=== PATIENT | male | born 1995 | race Caucasian/White ===

== ENCOUNTER 2017-03-03 11:24 | Emergency (ER) | payer SELFPAY ==
[~2017-03-03] VITALS: Ht 170.2 cm; Wt 80.0 kg
[2017-03-03 11:36] VITALS: Ht 170.2 cm; Wt 80.0 kg
[2017-03-03 12:11] LABS: ADD SCAN DIFF NO
[2017-03-03 12:14] LABS: BASOPHIL # 0.1 10^3/ul (0.0-0.1); BASOPHILS % 0.5 % (0.0-2.0); EOSINOPHILS % 0.2 % (0.0-7.0); HEMATOCRIT 42.6 % (42.0-52.0); HEMOGLOBIN 14.6 g/dl (14.0-18.0); LYMPHOCYTES # 2.2 10^3/ul (0.8-2.9); LYMPHOCYTES % 20.5 % (18.0-55.0); MEAN CORPUSCULAR HEMOGLOBIN 29.7 pg (29.0-33.0); MEAN CORPUSCULAR HGB CONC 34.3 g/dl (32.0-37.0); MEAN CORPUSCULAR VOLUME 86.6 fl (72.0-104.0); MEAN PLATELET VOLUME 10.4 fl (7.4-10.4); MONOCYTE # 0.7 10^3/ul (0.3-0.9); MONOCYTES % 6.9 % (0.0-13.0); NEUTROPHIL # 7.5 10^3/ul (1.6-7.5); NEUTROPHILS % 71.6 % (30.0-74.0); PLATELET COUNT 181 10^3/UL (140-415); RED BLOOD COUNT 4.92 10^6/ul (4.70-6.10); RED CELL DISTRIBUTION WIDTH 12.3 % (11.5-14.5); WHITE BLOOD COUNT 10.5 10^3/ul (4.8-10.8)
[2017-03-03 12:29] LABS: ALBUMIN 4.4 g/dl (3.3-4.9); CHLORIDE 102 mmol/L (97-110)
[2017-03-03 12:30] LABS: POTASSIUM 3.2 mmol/L (3.5-5.1); SODIUM 140 mmol/L (135-144)
[2017-03-03 12:32] LABS: ALBUMIN/GLOBULIN RATIO 1.33; ANION GAP 15 (8-16); ASPARTATE AMINO TRANSFERASE 28 IU/L (15-46); BILIRUBIN,INDIRECT 0.8 mg/dl (0-1.1); BILIRUBIN,TOTAL 0.8 mg/dl (0.2-1.3); CARBON DIOXIDE 26 mmol/L (21-31); CREATININE 0.83 mg/dl (0.61-1.24); TOTAL PROTEIN 7.7 g/dl (6.1-8.1)
[2017-03-03 12:33] LABS: ALANINE AMINOTRANSFERASE 32 IU/L (13-69); ALKALINE PHOSPHATASE 35 IU/L (42-121); BLOOD UREA NITROGEN 12 mg/dl (7-20); CALCIUM 9.4 mg/dl (8.4-10.2); GLUCOSE 103 mg/dl (70-220)
[2017-03-03 12:42] LABS: ACETAMINOPHEN < 10.0 ug/ml (10.0-30.0)
--- NOTE | 2017-03-03 12:42 | RADRPT ---
PROCEDURE: CT brain without contrast CLINICAL INDICATION: Possible drug use, medical clearance, altered mental status TECHNIQUE: CT of the brain without contrast was performed on a multidetector CT scanner, with multi planar reformats. One or more of the following dose reduction techniques were used: Automated expos ure control, adjustment in mA and / or kV according to patient size, use of iterative reconstructive technique. CTDIvol = 43 mGy; DLP = 720 mGy-cm. COMPARISON: None available FINDINGS: No acute intracranial hemorrhage is identified. No extra-axial fluid collection is seen. There is no mass effect. No midline shift is identified. Ventricles and sulci are within normal limits for size and configuration. The density of the brain is unremarkable. Park-white differentiation is preserved. Osseous structures are unremarkable. Mastoid air cells and imaged paranasal sinuses grossly clear. IMPRESSION: Unremarkable noncontrast CT of the brain. RPTAT: VV .Ben Phan MD, MD Date Time Electronically viewed and signed by .Ben Phan MD, MD on 03/03/2017 12:42 .O/
[2017-03-03 12:43] LABS: ETHANOL < 10.0 mg/dl; SALICYLATE < 1.0 mg/dl (5.0-30.0)
[2017-03-03 13:23] LABS: ADD UMIC YES; URINE BILIRUBIN (Dip) NEGATIVE (NEGATIVE); URINE BLOOD (Dip) NEGATIVE (NEGATIVE); URINE COLOR LT. YELLOW (YELLOW); URINE GLUCOSE (Dip) NEGATIVE (NEGATIVE); URINE KETONES (Dip) NEGATIVE (NEGATIVE); URINE LEUKOCYTE ESTERASE (Dip) TRACE (NEGATIVE); URINE NITRITE (Dip) NEGATIVE (NEGATIVE); URINE TOTAL PROTEIN (Dip) NEGATIVE (NEGATIVE); URINE UROBILINOGEN (Dip) 0.2 E.U./dL (0.1-1.0)
[2017-03-03] MEDS: POTASSIUM CHLORIDE (SR) 20 MEQ TAB PO STA ×2 (13:25→13:26)
[2017-03-03] MEDS: LORAZEPAM 2 MG INJ IM ONE ×2 (13:25→13:29)
[2017-03-03 13:30] VITALS: BP 136/82; PULSE 94; RESP 20; TEMP 98
--- NOTE | 2017-03-03 13:34 | ERD ---
ER Documentation Chief Complaint Date/Time DATE: 03/03/17 TIME: 13:31 Chief Complaint BIB RA FOR DRUG USE METH. HPI Patient is a 21-year-old male with illicit drug use who presents saying that he smoked methamphetamines. He said that he does this every day but today he did it and feels that it might have been "laced" with some other drug". He is more altered than usual per the girlfriend. He smoked the methamphetamines this morning between 6 and 8 AM. Upon review of old medical records the patient one previous visit to the ER in 2006. He does not currently have a primary doctor. ROS All systems reviewed and are negative except as per history of present illness. Allergies Allergies: Coded Allergies: No Known Allergy (Unverified , 03/03/17) PMhx/Soc Medical and Surgical Hx: pt denies Medical Hx, pt denies Surgical Hx Hx Alcohol Use: No Hx Substance Use: Yes (Meth today) Hx Tobacco Use: Yes Smoking Status: Current every day smoker FmHx Family History: No diabetes Physical Exam Vitals Vital Signs Date Time Temp Pulse Resp B/P Pulse Ox O2 Delivery O2 Flow Rate FiO2 03/03/17 11:39 98.1 112 19 143/89 99 03/03/17 11:36 98.1 112 19 143/89 99 Physical Exam Const: No acute distress Head: Atraumatic Eyes: Normal Conjunctiva ENT: Normal External Ears, Nose and Mouth. Neck: Full range of motion..~ No meningismus. Resp: Clear to auscultation bilaterally Cardio: Regular rate and rhythm, no murmurs Abd: Soft, non tender, non distended. Normal bowel sounds Skin: No petechiae or rashes Back: No midline or flank tenderness Ext: No cyanosis, or edema Neur: Awake but confused Result Diagram: 03/03/17 1151 03/03/17 1151 Results 24 hrs Laboratory Tests Test 03/03/17 11:51 White Blood Count 10.510^3/ul Red Blood Count 4.9210^6/ul Hemoglobin 14.6g/dl Hematocrit 42.6% Mean Corpuscular Volume 86.6fl Mean Corpuscular Hemoglobin 29.7pg Mean Corpuscular Hemoglobin Concent 34.3g/dl Red Cell Distribution Width 12.3% Platelet Count 94530^3/UL Mean Platelet Volume 10.4fl Neutrophils % 71.6% Lymphocytes % 20.5% Monocytes % 6.9% Eosinophils % 0.2% Basophils % 0.5% Nucleated Red Blood Cells % 0.0/100WBC Neutrophils # 7.510^3/ul Lymphocytes # 2.210^3/ul Monocytes # 0.710^3/ul Eosinophils # 0.010^3/ul Basophils # 0.110^3/ul Nucleated Red Blood Cells # 0.010^3/ul Sodium Level 140mmol/L Potassium Level 3.2mmol/L Chloride Level 102mmol/L Carbon Dioxide Level 26mmol/L Anion Gap 15 Blood Urea Nitrogen 12mg/dl Creatinine 0.83mg/dl Glucose Level 103mg/dl Calcium Level 9.4mg/dl Total Bilirubin 0.8mg/dl Direct Bilirubin 0.00mg/dl Indirect Bilirubin 0.8mg/dl Aspartate Amino Transf (AST/SGOT) 28IU/L Alanine Aminotransferase (ALT/SGPT) 32IU/L Alkaline Phosphatase 35IU/L Total Protein 7.7g/dl Albumin 4.4g/dl Globulin 3.30g/dl Albumin/Globulin Ratio 1.33 Salicylates Level < 1.0mg/dl Acetaminophen Level < 10.0ug/ml Ethyl Alcohol Level < 10.0mg/dl Current Medications Medications (Trade) Dose Ordered Sig/Ayesha Route PRN Reason Start Time Stop Time Status Last Admin Dose Admin Potassium Chloride (Klor-Con 20) 40 meq ONCE STAT PO 03/03/17 12:58 03/03/17 13:19 DC Lorazepam (Ativan) 1 mg ONCE ONCE IM 03/03/17 13:30 03/03/17 13:31 Procedures/MDM CT brain negative per radiology. EKG read by me: Rate/Rhythm: Regular rate and rhythm at a normal rate Intervals: Normal Impression: No evidence of ischemia or arrhythmia Smoking Cessation Therapy: Pt. was lectured for greater than 3 minutes on the health risks of continued smoking and the benefits of cessation. Patient is a 21-year-old male presents after using methamphetamines. I believe his symptoms are likely related to illicit drug use. His laboratory studies show mild hypokalemia which was repleted with potassium by mouth. I believe outpatient management is appropriate. I wanted to give him Ativan for his symptoms but he refused. The patient be discharged into the care of his girlfriend who is awake and sober and willing to accept responsibility for him. The patient can return for any worsening symptoms. He was instructed not to use illicit drugs in the future. Departure Diagnosis: Primary Impression: Altered mental status Altered mental status type: unspecified Qualified Code: R41.82 - Altered mental status, unspecified altered mental status type Additional Impressions: Drug use Hypokalemia Condition: Fair Patient Instructions: Drug Abuse Referrals: [facility] YOU HAVE RECEIVED A MEDICAL SCREENING EXAM AND THE RESULTS INDICATE THAT YOU DO NOT HAVE A CONDITION THAT REQUIRES URGENT TREATMENT IN THE EMERGENCY DEPARTMENT. FURTHER EVALUATION AND TREATMENT OF YOUR CONDITION CAN WAIT UNTIL YOU ARE SEEN IN YOUR DOCTORS OFFICE WITHIN THE NEXT 1-2 DAYS. IT IS YOUR RESPONSIBILITY TO MAKE AN APPOINTMENT FOR FOLOW-UP CARE. IF YOU HAVE A PRIMARY DOCTOR --you should call your primary doctor and schedule an appointment IF YOU DO NOT HAVE A PRIMARY DOCTOR YOU CAN CALL OUR PHYSICIAN REFERRAL HOTLINE AT IF YOU CAN NOT AFFORD TO SEE A PHYSICIAN YOU CAN CHOSE FROM THE FOLLOWING [facility] [address] [facility] [address] [facility] [address] [facility] [address] [facility] [address] [facility] [facility]. [address] Additional Instructions: Call your primary care doctor TOMORROW for an appointment during the next 1-2 days.See the doctor sooner or return here if your condition worsens before your appointment time. GUSTAVO PITTMAN MD March 03, 2017 13:34
[2017-03-03 13:40] LABS: BARBITURATES Negative (NEGATIVE); BENZODIAZEPINES Negative (NEGATIVE); CANNABINOIDS Negative (NEGATIVE); COCAINE Negative (NEGATIVE); OPIATES Negative (NEGATIVE)
[2017-03-03 13:44] LABS: URINE RBCS NONE SEEN /HPF (0)
== END 2017-03-03 13:30 | disposition home or self-care (01) ==
LOC: E/R 11:24
DX: R41.82 Altered mental status, unspecified (principal); E87.6 Hypokalemia; F17.210 Nicotine dependence, cigarettes, uncomplicated
CPT/HCPCS: 36415; 70450; 80053; 80306; 80307; 81001; 85025; 93005; 99285; J2060

== ENCOUNTER 2017-07-05 10:35 | Emergency (ER) | payer MEDICAID ==
[~2017-07-05] VITALS: Ht 185.4 cm; Wt 108.0 kg
[2017-07-05 10:39] VITALS: Ht 185.4 cm; Wt 108.0 kg
--- NOTE | 2017-07-05 11:20 | ERA ---
ER Documentation Chief Complaint Date/Time DATE: 07/05/17 TIME: 11:19 Chief Complaint pt bib self with c/o cough and pain with inspiration HPI The patient is a 22-year-old male, presenting with sore throat, ear pain, chest discomfort, intermittent cough, nasal congestion for the last couple days. He denies chest pain with exertion/vomiting/palpitation, dyspnea, abdominal pain, vomiting, dysuria, diarrhea. He smokes and does illicit drug Past medical/surgical history: None ROS All systems reviewed and are negative except as per history of present illness. Medications Home Meds Active Scripts Amoxicillin* (Amoxicillin*) 500 Mg Cap, 500 MG PO TID for 10 Days, CAP Prov:KHURRAM SHARP MD 07/05/17 Ibuprofen* (Motrin*) 600 Mg Tab, 600 MG PO Q6, #20 TAB Prov:KHURRAM SHARP MD 07/05/17 Allergies Allergies: Coded Allergies: No Known Allergy (Unverified , 07/05/17) PMhx/Soc Hx Alcohol Use: No Hx Substance Use: Yes (Meth today) Hx Tobacco Use: Yes Physical Exam Vitals Vital Signs Date Time Temp Pulse Resp B/P Pulse Ox O2 Delivery O2 Flow Rate FiO2 07/05/17 10:39 98.9 117 20 135/65 97 Physical Exam Const: No acute distress. Head: Atraumatic. Eyes: Normal Conjunctiva. ENT: Normal External Ears, Nose and Mouth.Bilateral tympanic membranes are bulging and erythematous, erythematous pharynx, no exudate Neck: Full range of motion. No meningismus. Resp: Clear to auscultation bilaterally. Cardio: Regular Tachycardic Abd: Soft, non distended, normal bowel sounds, non tender. Skin: No petechiae or rashes. Back: No midline or flank tenderness. Ext: No cyanosis, or edema. Neur: Awake and alert. No focal deficit Psych: Normal Mood and Affect. Procedures/MDM MEDICAL MAKING DECISION: The patient is a 22-year-old male, presenting with acute viral syndrome, acute bilateral otitis media. He is stable for outpatient follow-up The differential diagnoses considered include but are not limited to influenza, pneumonia, bronchitis, cystitis Departure Diagnosis: Primary Impression: Otitis media Additional Impression: Viral syndrome Condition: Good Comments He was discharged amoxicillin, Motrin I discussed the findings with the patient. I advised the patient to follow-up with the primary physician in about 1-2 days, sooner if needed and return if any concern. The patient's blood pressure was elevated (>120/80) but appears stable without evidence of hypertension emergency or urgency. The patient was counseled about the risks of hypertension and urged to pursue outpatient monitoring and therapy within a week with their primary care physician. KHURRAM SHARP MD Jul 05, 2017 11:20
[2017-07-05] MEDS ORDERED: IBUP-1542 PO (11:40)
[2017-07-05] MEDS ORDERED: AMOX500C2 PO (11:41)
== END 2017-07-05 12:01 | disposition home or self-care (01) ==
LOC: FTE 10:35
DX: H66.93 Otitis media, unspecified, bilateral (principal); B34.9 Viral infection, unspecified; Z87.891 Personal history of nicotine dependence
CPT/HCPCS: 99283